=== PATIENT | male | born 1975 | race Caucasian/White ===

== ENCOUNTER 2016-07-15 09:16 | Emergency (ER) | payer OTHER ==
[~2016-07-15] VITALS: Ht 185.4 cm; Wt 100.0 kg
[~2016-07-15 09:16] MED LIST: PERCOCET 325 MG1 TA2 PO
[2016-07-15 09:19] VITALS: BP 111/80; TEMP 98.1
[2016-07-15 10:32] VITALS: PULSE 82
== END 2016-07-15 10:33 | disposition home or self-care (01) ==
LOC: COL.ER 09:16
DX: S93.401A Sprain of unspecified ligament of right ankle, initial encounter (principal); W19.XXXA Unspecified fall, initial encounter; Y92.828 Other wilderness area as the place of occurrence of the external cause